=== PATIENT | male | born 1970 | race Caucasian/White ===

== ENCOUNTER 2018-04-25 05:00 | Emergency (ER) | payer SELFPAY ==
[~2018-04-25] VITALS: Ht 167.6 cm; Wt 67.6 kg
[2018-04-25 05:05] VITALS: BP 129/67
--- NOTE | 2018-04-25 05:10 | NUR ---
PT TAKEN TO BED 8
--- NOTE | 2018-04-25 05:20 | NUR ---
47 YO MALE COMES TO ER FOR C/O SOB. PT STATES HE USED HIS INHALER X5 TIMES AND HE STILL FELT SOB. PT AAOX4. LUNGS DIMINISHED BREATH SOUNDS, PT TRIPOD IN GURNEY. ABD SOFT NON DISTENDED. SKIN WARM DRY INTACT. GURNEY LOCKED AND IN LOWEST POSITION RT AND ER MD MADE AWARE.
[2018-04-25] MEDS ORDERED: ALBUTEROL SULFATE/IPRATROPIU 3 ML SOL IH ONE ×2 (05:30→07:25)
[2018-04-25] MEDS ORDERED: ALBUTEROL 0.083% 2.5 MG/3 ML NEBU INH ONE (05:30)
[2018-04-25] MEDS ORDERED: predniSONE 20 MG TAB PO ONE (05:30)
--- NOTE | 2018-04-25 05:39 | NUR ---
Respiratory Therapist at bedside for respiratory intervention.
--- NOTE | 2018-04-25 05:45 | NUR ---
PT STATES HE FEELS BETTER. DENIES CP/SOB @ THIS TIME AFTER BREATHING RX. 99% SPO2, HR 72.
--- NOTE | 2018-04-25 07:11 | NUR ---
ENDORSED CARE TO DAY SHIFT RN, NO ACUTE DISTRESS. VSS.
--- NOTE | 2018-04-25 07:12 | NUR ---
RECEIVED REPORT FROM WARD SUPERVISOR RN. PT RETING IN BED. NO SOB OR ACUTE RESPIRATORY DISTRESS NOTED.
--- NOTE | 2018-04-25 07:23 | NUR ---
PT BEING RE-EVALUATED BY ER DOCTOR AT THIS TIME.
[2018-04-25] MEDS ORDERED: DEXAMETHASONE 10 MG/ML VIAL IM ONE (07:25)
[2018-04-25] MEDS ORDERED: diphenhydrAMINE 50 MG/ML VIAL IM ONE (07:25)
[2018-04-25] MEDS ORDERED: cefTRIAXone 1,000 MG in LIDOCAINE 1% ***ER ONLY *** 2.1 ML IM ONE (07:25)
[2018-04-25] MEDS ORDERED: cefTRIAXone 1,000 MG VIAL ONE (07:45)
[2018-04-25] MEDS ORDERED: LIDOCAINE MPF 1% 5mL VIAL ONE (07:47)
--- NOTE | 2018-04-25 07:56 | NUR ---
RECEIVED ED PATIENT ON ROOM AIR, PULSE OX SAT 98%. ORDERED BREATHING TREATMENT ADMINISTERED. TOLERATED WELL. RESPONDED TO TX WITH IMPROVED AERATION. PATIENT STATES TO BE FEELING BETTER. NO ACUTE RESPIRATORY DISTRESS NOTED. WILL CONTINUE TO MONITOR.
--- NOTE | 2018-04-25 07:56 | NUR ---
FLU SWAB TAKEN BY LAB.
--- NOTE | 2018-04-25 10:18 | NUR ---
PT APPEARES TO BE RELAXED, RESTING IN BED. NO C/O PAIN. BREATHING NORMAL. NO SOB OR ACUTE RESPIRATORY DISTRESS NOTED.
--- NOTE | 2018-04-25 10:19 | NUR ---
Patient discharged with v/s stable. Written and verbal after care instructions given and explained. Patient alert, oriented and verbalized understanding of instructions. Ambulatory with steady gait. All questions addressed prior to discharge. ID band removed. Patient advised to follow up with PMD. Rx of ALBUTEROL,AZITHROMYCIN, PREDNISONE AND PROMETHAZINE given. Patient educated on indication of medication including possible reaction and side effects. Opportunity to ask questions provided and answered.
[2018-04-25 10:20] VITALS: BP 115/74
== END 2018-04-25 10:19 | disposition home or self-care (01) ==
LOC: MED 05:00
DX: J44.1 Chronic obstructive pulmonary disease with (acute) exacerbation (principal); I10 Essential (primary) hypertension; F17.200 Nicotine dependence, unspecified, uncomplicated
CPT/HCPCS: 71045; 87804; 94640; 96372; 99284; J0696; J1100; J1200; J2001; J7512; J7613; J7620